=== PATIENT | female | born 1975 | race Caucasian/White ===

== ENCOUNTER 2019-01-29 18:54 | Emergency (ER) ==
[2019-01-29 19:03] VITALS: BP 151/72; TEMP 99; BMI 33.7
[2019-01-29] MEDS ORDERED: TORADOL IM STA (19:37)
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
--- NOTE | 2019-01-29 20:02 | DI ---
EXAM: Right ankle three views CLINICAL HISTORY: Ankle pain FINDINGS: No acute fractures or dislocations are seen. Surrounding soft tissues are normal. The an kle mortise is intact. IMPRESSION: Negative right ankle
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
[2019-01-29] MEDS ORDERED: DILAUDID 1 MG/ML SYRINGE IM STA (21:13)
== END 2019-01-29 22:30 | disposition home or self-care (01) ==
LOC: ED 18:54
DX: S82.811A Torus fracture of upper end of right fibula, initial encounter for closed fracture (principal); S80.11XA Contusion of right lower leg, initial encounter; S80.211A Abrasion, right knee, initial encounter; W19.XXXA Unspecified fall, initial encounter; F17.210 Nicotine dependence, cigarettes, uncomplicated
CPT/HCPCS: 96372; 99283